=== PATIENT | female | born 1930 | race Caucasian/White ===

== ENCOUNTER 2016-11-22 12:31 | Emergency (ER) | payer MEDICARE, BC ==
[~2016-11-22] VITALS: Ht 160 cm; Wt 75.7 kg
[~2016-11-22 12:31] MED LIST: ATOR20TA15 PO; CITRTAB7 PO; LISI-515 PO; NAME10TA PO; OMEP20TA PO; PLAV75TA29 PO
[2016-11-22 12:45] VITALS: BP 195/96; PULSE 87; RESP 16; TEMP 97.9; O2SAT 99
[2016-11-22 13:04] VITALS: BP 197/89; PULSE 74; RESP 17
[2016-11-22] MEDS ORDERED: amLODIPine BESYLATE 5 MG TAB PO ONE (13:30)
--- NOTE | 2016-11-22 13:32 | PD ---
HPI Chief Complaint: Hypertension Time Seen by Provider: 13:28 Travel History International Travel<30 days: No Contact w/Intl Traveler<30days: No Traveled to known affect area: No History of Present Illness HPI 86-year-old female with history of hypertension, previous TIA, states that her primary care physician had recently changed her blood pressure medications in order to decrease the amount of pills she is taking, and she noticed that the last 2 days, her blood pressure has been up. She denies any headaches, chest pains, shortness of breath, or other issues. She reports not feeling any differently otherwise. Modifying Factors: None Associated Signs & Symptoms: Elevated blood pressures Risk Factors: Hypertension, primary care physician changed her medications PFSH Past Medical History Hx Anticoagulant Therapy: Yes Arthritis: Yes Asthma: No Autoimmune Disease: Yes Blood Disorders: No Anxiety: Yes Depression: Yes Heart Rhythm Problems: No Cancer: Yes (breast) Cardiac Catheterization: Yes Cardiovascular Problems: Yes (HTN CHOL) High Cholesterol: Yes Chemotherapy: No Chest Pain: Yes Congestive Heart Failure: No COPD: No Cerebrovascular Accident: Yes (TIA) Dementia: Yes Diabetes: No Endocrine: No GERD: Yes Genitourinary: Yes Hypertension: Yes Immune Disorder: No Kidney Stones: No Musculoskeletal: Yes Neurologic: Yes (TIA IN 2013) Psychiatric: No Reproductive: No Respiratory: No Immunizations Current: Yes Migraines: Yes Radiation Therapy: No Renal Failure: No Seizures: No Sickle Cell Disease: No Sleep Apnea: No Thyroid Disease: No Ulcer: No Tetanus Vaccination: Unknown Influenza Vaccination: Yes ?: Not : 3 Para: 2 Miscarriage: 1 Past Surgical History Abdominal Surgery: Yes AICD: No Arteriovenous Shunt: No Cardiac Surgery: No Cholecystectomy: Yes Ear Surgery: No Endocrine Surgery: Yes (PARATHYROIDECTOMY) Eye Surgery: Yes (CATARACT REMOVAL BOTH EYES. ) Genitourinary Surgery: No Gynecologic Surgery: Yes (BILATERAL MASTECTOMY) Hysterectomy: No Insulin Pump: No Joint Replacement: No Mastectomy: Yes Oral Surgery: No Pacemaker: No Thoracic Surgery: No Tonsillectomy: Yes Other Surgery: Yes (MASTECTOMY BOTH BREASTS R/T CANCER) Social History Alcohol Use: Yes (RARE) Tobacco Use: No Substance Use: No Allergies-Medications (Allergen,Severity, Reaction): Coded Allergies: Cefzil (Unverified Allergy, Severe, Hives, 11/22/16) ITCHING AND REDNESS WITH HIVES Shrimp (Verified Allergy, Unknown, Anaphylaxis, 11/22/16) Reported Meds & Prescriptions Reported Meds & Active Scripts Active Atorvastatin (Atorvastatin Calcium) 20 Mg Tab 20 Mg PO HS Lisinopril 20 Mg Tab 20 Mg PO DAILY Plavix (Clopidogrel Bisulfate) 75 Mg Tab 75 Mg PO DAILY Omeprazole 20 Mg Tab 20 Mg PO HS Reported Citracal + D3 Maximum (Calcium Citrate-Vitamin D) 315-250 Mg-Unit Tab 1 Tab PO BID Namenda (Memantine) 10 Mg Tab 10 Mg PO HS Review of Systems Except as stated in HPI: all other systems reviewed are Neg Physical Exam Narrative GENERAL: Well-nourished, well-developed pleasant elderly white female patient in no acute distress. Awake and oriented 3. SKIN: Warm and dry. HEAD: Normocephalic. EYES: No scleral icterus. No injection or drainage. NECK: Supple, trachea midline. CARDIOVASCULAR: Regular rate and rhythm without murmurs, gallops, or rubs. RESPIRATORY: Breath sounds equal bilaterally. No accessory muscle use. GASTROINTESTINAL: Abdomen soft, non-tender, nondistended. MUSCULOSKELETAL: No cyanosis, or edema. BACK: Nontender without obvious deformity. No CVA tenderness. Data Data Last Documented VS Vital Signs Date Time Temp Pulse Resp B/P Pulse Ox O2 Delivery O2 Flow Rate FiO2 11/22/16 14:23 66 17 178/61 97 Room Air 11/22/16 12:45 97.9 Orders Electrocardiogram (11/22/16 13:28) Basic Metabolic Panel (Bmp) (11/22/16 13:28) Troponin I (11/22/16 13:28) Amlodipine (Norvasc) (11/22/16 13:30) Labs Laboratory Tests Test 11/22/16 13:45 Sodium Level 143 MEQ/L Potassium Level 3.9 MEQ/L Chloride Level 111 MEQ/L Carbon Dioxide Level 23.5 MEQ/L Anion Gap 9 MEQ/L Blood Urea Nitrogen 18 MG/DL Creatinine 0.76 MG/DL Estimat Glomerular Filtration 72 ML/MIN Rate Random Glucose 82 MG/DL Calcium Level 9.2 MG/DL Troponin I LESS THAN 0.02 NG/ML MDM Medical Decision Making Medical Screen Exam Complete: Yes Emergency Medical Condition: Yes Medical Record Reviewed: Yes Interpretation(s) EKG shows NSR, no acute ST elevation or depression, and no arrhythmias. No significant T-wave inversions. Laboratory Tests Test 11/22/16 13:45 Chloride Level 111 MEQ/L (98-107) Estimat Glomerular Filtration 72 ML/MIN (>89) Rate Troponin I LESS THAN 0.02 NG/ML (0.02-0.05) Differential Diagnosis Elevated blood pressurespoorly controlled hypertension versus hypertensive urgency versus renal issues Narrative Course Patient reports no chest pains, trouble breathing, or any significant acute symptoms. EKG did not show any signs of significant dysrhythmias or acute ST changes. Her lab work was otherwise unremarkable. Her cardiac enzymes is unremarkable. She was given amlodipine which she had been on previously in the ER and on reevaluation at 12:20 PM, her blood pressure is down to 174 systolic. At this point, it seems that the patient needs better blood pressure management. My plan would be to add the amlodipine back to her regimen and have her follow-up with her primary care physician for further tailoring of blood pressure medications. She should return for any worsening in blood pressures, chest pains, trouble breathing, or new symptoms as needed. The plan has discussed with her and son and they state understanding. Diagnosis Primary Impression: Hypertension Med/Other Pt SpecificInfo: Existing Med Changed (restart your amlodipine as previously prescribed) Disposition: 01 DISCHARGE HOME Condition: Stable Blayne Liu MD Nov 22, 2016 13:32
[2016-11-22 13:58] LABS: CHLORIDE 111 MEQ/L (98-107); POTASSIUM 3.9 MEQ/L (3.5-5.1); SODIUM (NA) 143 MEQ/L (136-145)
[2016-11-22 14:01] LABS: ANION GAP 9 MEQ/L (5-15); BICARBONATE 23.5 MEQ/L (21.0-32.0); BLOOD UREA NITROGEN 18 MG/DL (7-18)
[2016-11-22 14:04] LABS: GLOMERULAR FILTRATION RATE 72 ML/MIN (>89)
[2016-11-22 14:23] VITALS: BP 178/61; PULSE 66; RESP 17; O2SAT 97
--- NOTE | 2016-11-23 15:42 | EKG ---
Date Performed: 11/22/2016 Time Performed: 13:55:56 PTAGE: 86 years EKG: Sinus rhythm Anterior T wave changes are nonspecific Low QRS voltages in precordial leads Loss of anterior R wave Cannot rule out anterior injury, age undetermined Borderline ECG PREVIOUS TRACING : 09/23/2016 16.26 DOCTOR: Kunal Singh Interpretating Date/Time 11/23/2016 15:41:46
[2016-12-11] MEDS ORDERED: PAXI10TA2 PO (13:21)
[2017-01-22] MEDS ORDERED: AMLO5TAB2 PO ×2 (09:37→10:01)
[2017-01-22] MEDS ORDERED: RANI150T PO (10:01)
[2017-02-11] MEDS ORDERED: AMLO5TAB2 PO (14:32)
[2017-02-11] MEDS ORDERED: PAXI10TA2 PO (14:32)
[2017-04-08] MEDS ORDERED: PLAV75TA29 PO (12:42)
[2017-04-08] MEDS ORDERED: NAME10TA PO (12:42)
[2017-04-09] MEDS ORDERED: ATOR20TA15 PO (13:21)
[2017-04-09] MEDS ORDERED: AMLO5TAB2 PO (13:21)
[2017-04-24] MEDS ORDERED: ATOR20TA15 PO (14:40)
[2017-04-24] MEDS ORDERED: AMLO5TAB2 PO (14:41)
[2017-04-24] MEDS ORDERED: PAXI10TA2 PO (14:51)
[2017-04-24] MEDS ORDERED: PROP20TA3 PO (14:52)
[2017-05-02] MEDS ORDERED: ATOR20TA15 PO (12:03)
== END 2016-11-22 14:48 | disposition home or self-care (01) ==
LOC: PHED 12:31
DX: I10 Essential (primary) hypertension (principal); R94.31 Abnormal electrocardiogram [ECG] [EKG]; Z86.73 Personal history of transient ischemic attack (TIA), and cerebral infarction without residual deficits; E78.00 Pure hypercholesterolemia, unspecified; K21.9 Gastro-esophageal reflux disease without esophagitis; Z79.01 Long term (current) use of anticoagulants
CPT/HCPCS: 80048; 84484; 93005

== ENCOUNTER 2017-06-22 13:48 | Emergency (ER) | payer MEDICARE, BC ==
[~2017-06-22] VITALS: Ht 162.6 cm; Wt 75.0 kg
[~2017-06-22 13:48] MED LIST changes: +AMLO5TAB2 PO; -OMEP20TA PO; +PAXI10TA2 PO
[2017-06-22 13:54] VITALS: BP 237/100; PULSE 75; RESP 16; TEMP 97.3; O2SAT 100
[2017-06-22] MEDS ORDERED: LOSA50TA PO (14:07)
[2017-06-22] MEDS ORDERED: ALPR0.25 PO (14:07)
[2017-06-22] MEDS ORDERED: POTA-163 PO (14:07)
[2017-06-22] MEDS ORDERED: MEMA1TAB PO (14:07)
--- NOTE | 2017-06-22 14:08 | PD ---
HPI Chief Complaint: Headache Time Seen by Provider: 14:05 Travel History International Travel<30 days: No Contact w/Intl Traveler<30days: No Traveled to known affect area: No History of Present Illness HPI Patient presents with concerns of elevated blood pressure. Reports evaluation by her primary care provider on Friday with adjustments of her medications. Compliant with losartan 50 mg by mouth twice a day. Reports a headache that started later in the morning. Otherwise asymptomatic. Denies any chest pain shortness of breath urinary or bowel symptoms. Denies any extremity weakness. Denies any nausea vomiting diarrhea or fever. PFSH Past Medical History Hx Anticoagulant Therapy: Yes Arthritis: Yes Asthma: No Autoimmune Disease: Yes Blood Disorders: No Anxiety: Yes Depression: Yes Heart Rhythm Problems: No Cancer: Yes (breast) Cardiac Catheterization: Yes Cardiovascular Problems: Yes (HTN CHOL) High Cholesterol: Yes Chemotherapy: No Chest Pain: Yes Congestive Heart Failure: No COPD: No Cerebrovascular Accident: Yes (TIA) Dementia: Yes Diabetes: No Endocrine: No GERD: Yes Genitourinary: Yes Hypertension: Yes Immune Disorder: No Kidney Stones: No Musculoskeletal: Yes Neurologic: Yes (TIA IN 2013) Psychiatric: No Reproductive: No Respiratory: No Immunizations Current: Yes Migraines: Yes Radiation Therapy: No Renal Failure: No Seizures: No Sickle Cell Disease: No Sleep Apnea: No Thyroid Disease: No Ulcer: No : 3 Para: 2 Miscarriage: 1 Past Surgical History Abdominal Surgery: Yes AICD: No Arteriovenous Shunt: No Cardiac Surgery: No Cholecystectomy: Yes Ear Surgery: No Endocrine Surgery: Yes (PARATHYROIDECTOMY) Eye Surgery: Yes (CATARACT REMOVAL BOTH EYES. ) Genitourinary Surgery: No Gynecologic Surgery: Yes (BILATERAL MASTECTOMY) Hysterectomy: No Insulin Pump: No Joint Replacement: No Mastectomy: Yes Oral Surgery: No Pacemaker: No Thoracic Surgery: No Tonsillectomy: Yes Other Surgery: Yes (MASTECTOMY BOTH BREASTS R/T CANCER) Social History Alcohol Use: Yes (RARE) Tobacco Use: No Substance Use: No Allergies-Medications (Allergen,Severity, Reaction): Coded Allergies: Cefzil (Unverified Allergy, Severe, Hives, 06/22/17) ITCHING AND REDNESS WITH HIVES Shrimp (Verified Allergy, Unknown, Anaphylaxis, 06/22/17) Reported Meds & Prescriptions Reported Meds & Active Scripts Active Atorvastatin (Atorvastatin Calcium) 20 Mg Tab 20 Mg PO HS Paxil (Paroxetine HCl) 10 Mg Tab 10 Mg PO BID Plavix (Clopidogrel Bisulfate) 75 Mg Tab 75 Mg PO DAILY Namenda (Memantine) 10 Mg Tab 10 Mg PO HS Reported Alprazolam 0.25 Mg Tab 0.25 Mg PO DAILY Losartan (Losartan Potassium) 50 Mg Tab 50 Mg PO BID Citracal + D3 Maximum (Calcium Citrate-Vitamin D) 315-250 Mg-Unit Tab 1 Tab PO BID Review of Systems General / Constitutional: No: Fever Eyes: No: Visual changes HENT: Positive: Headaches Cardiovascular: No: Chest Pain or Discomfort Respiratory: No: Shortness of Breath Gastrointestinal: No: Abdominal Pain Genitourinary: No: Dysuria Musculoskeletal: No: Pain Skin: No Rash Neurologic: No: Weakness Psychiatric: No: Depression Endocrine: No: Polydipsia Hematologic/Lymphatic: No: Easy Bruising Physical Exam Narrative GENERAL: Well-nourished, well-developed patient. SKIN: Focused skin assessment warm/dry. HEAD: Normocephalic. EYES: No scleral icterus. No injection or drainage. NECK: Supple, trachea midline. No JVD or lymphadenopathy. CARDIOVASCULAR: Regular rate and rhythm without murmurs, gallops, or rubs. RESPIRATORY: Breath sounds equal bilaterally. No accessory muscle use. GASTROINTESTINAL: Abdomen soft, non-tender, nondistended. MUSCULOSKELETAL: No cyanosis, or edema. BACK: Nontender without obvious deformity. No CVA tenderness. Data Data Last Documented VS Vital Signs Date Time Temp Pulse Resp B/P Pulse Ox O2 Delivery O2 Flow Rate FiO2 06/22/17 14:59 68 18 149/70 98 Room Air 06/22/17 13:54 97.3 Orders Clonidine (Catapres) (06/22/17 14:15) [facility] Medical Decision Making Medical Screen Exam Complete: Yes Emergency Medical Condition: Yes Differential Diagnosis Urgent hypertension, medication noncompliance, cephalgia, renal artery stenosis Narrative Course Assessment and plan discussed with patient and son at bedside. Patient received clonidine. With improvement of her blood pressure and resolution of her headache. Diagnosis Primary Impression: Hypertensive urgency Additional Instructions: Continue current medications. Encouraged a blood pressure log for evaluation with her PCP. Encouraged to observe salt in diet. Norvasc added twice a day. Med/Other Pt SpecificInfo: Prescription(s) given Scripts Amlodipine (Norvasc)5 Mg Tab5 Mg PO BID #60 TAB Ref 0 Prov:Darrell Avalos MD 06/22/17 Darrell Avalos MD Jun 22, 2017 14:08
[2017-06-22] MEDS ORDERED: cloNIDine HCL 0.2 MG TAB PO ONE (14:15)
[2017-06-22 14:46] VITALS: BP 194/75; PULSE 67; RESP 18; O2SAT 97
[2017-06-22 14:59] VITALS: BP 149/70; PULSE 68; RESP 18; O2SAT 98
[2017-06-22] MEDS ORDERED: AMLO5 PO (15:04)
== END 2017-06-22 15:41 | disposition home or self-care (01) ==
LOC: PHED 13:48
DX: I16.0 Hypertensive urgency (principal); I10 Essential (primary) hypertension; R51 Headache; F03.90 Unspecified dementia, unspecified severity, without behavioral disturbance, psychotic disturbance, mood disturbance, and anxiety; E78.00 Pure hypercholesterolemia, unspecified; Z79.01 Long term (current) use of anticoagulants; Z87.39 Personal history of other diseases of the musculoskeletal system and connective tissue; Z86.2 Personal history of diseases of the blood and blood-forming organs and certain disorders involving the immune mechanism; Z86.59 Personal history of other mental and behavioral disorders; Z85.3 Personal history of malignant neoplasm of breast; Z86.79 Personal history of other diseases of the circulatory system; Z87.19 Personal history of other diseases of the digestive system; Z87.448 Personal history of other diseases of urinary system; Z86.69 Personal history of other diseases of the nervous system and sense organs
CPT/HCPCS: 99283

== ENCOUNTER 2018-01-04 10:21 | Emergency (ER) | payer MEDICARE, BC ==
[~2018-01-04] VITALS: Ht 160 cm; Wt 74.8 kg
[~2018-01-04 10:21] MED LIST changes: +ALPR0.25 PO; +AMLO5 PO; -AMLO5TAB2 PO; -LISI-515 PO; +LOSA50TA PO; -PAXI10TA2 PO; +PAXI10TA8 PO
[2018-01-04 10:29] VITALS: BP 125/79; PULSE 81; RESP 16; TEMP 98; O2SAT 97
--- NOTE | 2018-01-04 10:58 | PD ---
HPI Chief Complaint: Fall Time Seen by Provider: 10:47 Travel History International Travel<30 days: No Contact w/Intl Traveler<30days: No Traveled to known affect area: No History of Present Illness HPI Patient presents with complaints of anterior chest pain and left neck pain for 8 days. Aggravated with motion. Constant in nature. Reports a fall 9 days ago onto a dresser with her chest and left neck taking the brunt of it. Denies any head trauma. Denies any loss of consciousness. Denies any shortness of breath. Denies any nausea vomiting diarrhea or fever. Denies any urinary or bowel symptoms. PFSH Past Medical History Hx Anticoagulant Therapy: Yes (coumadin) Arthritis: Yes Asthma: No Autoimmune Disease: Yes Blood Disorders: No Anxiety: Yes Depression: Yes Heart Rhythm Problems: No Cancer: Yes (breast) Cardiac Catheterization: Yes Cardiovascular Problems: Yes (HTN CHOL) High Cholesterol: Yes Chemotherapy: No Chest Pain: Yes Congestive Heart Failure: No COPD: No Cerebrovascular Accident: Yes (TIA) Dementia: Yes Diabetes: No Diminished Hearing: No Endocrine: No GERD: Yes Genitourinary: Yes Hypertension: Yes Immune Disorder: No Kidney Stones: No Musculoskeletal: Yes Neurologic: Yes (TIA IN 2013) Psychiatric: No Reproductive: No Respiratory: No Immunizations Current: Yes Migraines: Yes Radiation Therapy: No Renal Failure: No Seizures: No Sickle Cell Disease: No Sleep Apnea: No Thyroid Disease: No Ulcer: No Influenza Vaccination: Yes ?: Not : 3 Para: 2 Miscarriage: 1 Past Surgical History Abdominal Surgery: Yes AICD: No Arteriovenous Shunt: No Cardiac Surgery: No Cholecystectomy: Yes Ear Surgery: No Endocrine Surgery: Yes (PARATHYROIDECTOMY) Eye Surgery: Yes (CATARACT REMOVAL BOTH EYES. ) Genitourinary Surgery: No Gynecologic Surgery: Yes (BILATERAL MASTECTOMY) Hysterectomy: No Insulin Pump: No Joint Replacement: No Mastectomy: Yes Oral Surgery: No Pacemaker: No Thoracic Surgery: No Tonsillectomy: Yes Other Surgery: Yes (MASTECTOMY BOTH BREASTS R/T CANCER) Social History Alcohol Use: No Tobacco Use: No Substance Use: No Allergies-Medications (Allergen,Severity, Reaction): Coded Allergies: cefprozil (Unverified Allergy, Severe, Hives, 01/04/18) ITCHING AND REDNESS WITH HIVES shrimp (Unverified Allergy, Unknown, Anaphylaxis, 01/04/18) Reported Meds & Prescriptions Reported Meds & Active Scripts Active Norvasc (Amlodipine Besylate) 5 Mg Tab 5 Mg PO BID Atorvastatin (Atorvastatin Calcium) 20 Mg Tab 20 Mg PO HS Paxil (Paroxetine HCl) 10 Mg Tab 10 Mg PO BID Plavix (Clopidogrel Bisulfate) 75 Mg Tab 75 Mg PO DAILY Namenda (Memantine) 10 Mg Tab 10 Mg PO HS Reported Alprazolam 0.25 Mg Tab 0.25 Mg PO DAILY Losartan (Losartan Potassium) 50 Mg Tab 50 Mg PO BID Citracal + D3 Maximum (Calcium Citrate-Vitamin D) 315-250 Mg-Unit Tab 1 Tab PO BID Review of Systems General / Constitutional: No: Fever Eyes: No: Visual changes HENT: No: Headaches Cardiovascular: No: Chest Pain or Discomfort Respiratory: No: Shortness of Breath Gastrointestinal: No: Abdominal Pain Genitourinary: No: Dysuria Musculoskeletal: Positive: Pain Skin: No Rash Neurologic: No: Weakness Psychiatric: No: Depression Endocrine: No: Polydipsia Hematologic/Lymphatic: No: Easy Bruising Physical Exam Narrative GENERAL: Well-nourished, well-developed patient. SKIN: Focused skin assessment warm/dry. HEAD: Normocephalic. EYES: No scleral icterus. No injection or drainage. NECK: Supple, trachea midline. No JVD or lymphadenopathy. Tenderness to palpation over the left sternocleidomastoid muscle, no ecchymosis noted Tenderness to palpation over the sternum and to the left of midline, no ecchymosis or bony deformity noted CARDIOVASCULAR: Regular rate and rhythm without murmurs, gallops, or rubs. RESPIRATORY: Breath sounds equal bilaterally. No accessory muscle use. GASTROINTESTINAL: Abdomen soft, non-tender, nondistended. MUSCULOSKELETAL: No cyanosis, or edema. BACK: Nontender without obvious deformity. No CVA tenderness. Data Data Last Documented VS Vital Signs Date Time Temp Pulse Resp B/P (MAP) Pulse Ox O2 Delivery O2 Flow Rate FiO2 01/04/18 13:03 79 18 167/61 (96) 98 Room Air 01/04/18 10:29 98.0 Orders Orders Chest, Pa & Lat (01/04/18 ) Spine, Cervical - Ltd (Ap&Lat) (01/04/18 ) Al-Mag Hy-Si 40-40-4 Mg/Ml Liq (Mag-Al P (01/04/18 12:30) Lidocaine 2% Viscous (Xylocaine 2% Visco (01/04/18 12:30) MDM Medical Decision Making Medical Screen Exam Complete: Yes Emergency Medical Condition: Yes Differential Diagnosis Left rib fracture, sternal contusion, musculoskeletal pain Narrative Course Assessment and plan discussed with patient and son and [id number] at bedside. Towards the end of her visit patient reported some epigastric discomfort which did improve with GI cocktail. Diagnosis Primary Impression: Musculoskeletal pain Additional Impression: Epigastric discomfort Additional Instructions: Tylenol warm heat gentle stretching and strengthening massage. Zantac as prescribed. Encouraged to avoid aggravate factors of reflux including but not limited to alcohol tobacco late large meals spicy meals and weight Discussed [id number] remedies for constipation. Follow-up with PCP. Return emergently onset of new symptoms. Med/Other Pt SpecificInfo: Prescription(s) given Scripts Ranitidine (Zantac) 150 Mg Tab 150 MG PO DAILY for Reduce Stomach Acid, #30 TAB 0 Refills Prov: Darrell Avalos MD 01/04/18 Disposition: 01 DISCHARGE HOME Condition: Good Darrell Avalos MD Jan 04, 2018 10:58
--- NOTE | 2018-01-04 12:09 | RADRPT ---
EXAM DATE/TIME: 01/04/2018 11:27 [facility] COMPARISON: CHEST SINGLE AP, January 12, 2015, 23:00. INDICATIONS : Tripped and fell. Mid-sternal pain. MEDICAL HISTORY : None. SURGICAL HISTORY : None. ENCOUNTER: Initial ACUITY: 3 days PAIN SCORE: 8/10 LOCATION: Bilateral chest FINDINGS: PA and lateral views of the chest demonstrate the lungs to be symmetrically aerated without evidence of mass, infiltrate or effusion. Mild chronic interstitial changes are noted bilaterally. There is st able chronic scarring in both apices. The cardiomediastinal contours are unremarkable. Osseous stru ctures are intact. No significant changes compared to the prior study. CONCLUSION: No acute disease. No significant change has occurred. Isaiah Ibarra MD on January 04, 2018 at 12:07 Board Certified Radiologist. This report was verified electronically.
--- NOTE | 2018-01-04 12:11 | RADRPT ---
EXAM DATE/TIME: 01/04/2018 11:27 [facility] COMPARISON: No previous studies available for comparison. INDICATIONS : Tripped and fell. MEDICAL HISTORY : None. SURGICAL HISTORY : None. ENCOUNTER: Initial ACUITY: 3 days PAIN SCORE: 8/10 LOCATION: Bilateral neck mid neck FINDINGS: Two projection examination was performed. There is normal alignment and curvature of the vertebral b odies down to the level of C7. No evidence of fracture or subluxation. Vertebral body height is wes ntained. There is some focal primary degenerative changes with disc space narrowing at C5-6.. The pr evertebral soft tissues are of normal thickness. The odontoid process is intact. The atlanto-axial a rticulation is intact. There are surgical clips along the base of the neck on the right side. CONCLUSION: 1. Focal primary degenerative changes with disc space narrowing at C5-6 2. Otherwise, unremarkable examination for patient's age. Isaiah Ibarra MD on January 04, 2018 at 12:08 Board Certified Radiologist. This report was verified electronically.
[2018-01-04] MEDS ORDERED: LIDOCAINE VISCOUS 2% SOLN 15 ML UDC PO ONE (12:30)
[2018-01-04] MEDS ORDERED: ALUMINUM/MAGNESIUM/SIMETH 30 ML CUP PO ONE (12:30)
[2018-01-04 13:03] VITALS: BP 167/61; PULSE 79; RESP 18; O2SAT 98
[2018-01-04] MEDS ORDERED: ZANT150T2 PO (13:36)
== END 2018-01-04 13:49 | disposition home or self-care (01) ==
LOC: PHED 10:21
DX: R07.9 Chest pain, unspecified (principal); M54.2 Cervicalgia; M19.90 Unspecified osteoarthritis, unspecified site; F41.9 Anxiety disorder, unspecified; F32.9 Major depressive disorder, single episode, unspecified; I10 Essential (primary) hypertension; K21.9 Gastro-esophageal reflux disease without esophagitis; F03.90 Unspecified dementia, unspecified severity, without behavioral disturbance, psychotic disturbance, mood disturbance, and anxiety; Z86.73 Personal history of transient ischemic attack (TIA), and cerebral infarction without residual deficits
CPT/HCPCS: 71046; 72040; 99284

== ENCOUNTER 2018-02-17 10:08 | Emergency (ER) | payer MEDICARE, BC ==
[~2018-02-17] VITALS: Ht 162.6 cm; Wt 76.0 kg
[~2018-02-17 10:08] MED LIST changes: +ZANT150T2 PO
[2018-02-17 10:16] VITALS: BP 223/93; PULSE 82; RESP 16; TEMP 97.5; O2SAT 99
[2018-02-17 11:02] VITALS: BP_SYST 211; BP_SYST 214; BP_DIAS 100; BP_DIAS 92; PULSE 80; RESP 16; O2SAT 98
[2018-02-17] MEDS ORDERED: VESI5TAB2 PO (11:08)
[2018-02-17] MEDS ORDERED: SODIUM CHLORIDE 0.9% FLUSH 10 ML FLUSH IVF PRN (11:15)
[2018-02-17] MEDS ORDERED: LOSARTAN 50 MG TAB PO ONE (11:15)
[2018-02-17] MEDS ORDERED: amLODIPine BESYLATE 5 MG TAB PO ONE (11:15)
[2018-02-17 11:19] VITALS: O2SAT 97
[2018-02-17 11:41] LABS: CHLORIDE 108 MEQ/L (98-107); SODIUM (NA) 140 MEQ/L (136-145)
[2018-02-17 11:42] LABS: AUTOMATED NEUTROPHIL # 4.2 TH/MM3 (1.8-7.7); BASOPHIL % 0.6 % (0.0-2.0); EOSINOPHIL # 0.2 TH/MM3 (0-0.4); EOSINOPHIL % 2.8 % (0.0-4.0); HEMATOCRIT 41.5 % (35.0-46.0); LYMPH % 24.3 % (9.0-44.0); LYMPHOCYTE # 1.5 TH/MM3 (1.0-4.8); MEAN CELL VOLUME 91.1 FL (80.0-100.0); MEAN CORPUSCULAR HEMOGLOBIN 30.7 PG (27.0-34.0); MEAN CORPUSCULAR HGB CONC 33.7 % (32.0-36.0); MEAN PLATELET VOLUME 7.8 FL (7.0-11.0); MONO % 4.7 % (0.0-8.0); MONOCYTE # 0.3 TH/MM3 (0-0.9); NEUT % 67.6 % (16.0-70.0); PLATELET COUNT 184 TH/MM3 (150-450); RED BLOOD COUNT 4.56 MIL/MM3 (4.00-5.30); RED CELL DISTRIBUTION WIDTH 13.4 % (11.6-17.2); WHITE BLOOD COUNT 6.3 TH/MM3 (4.0-11.0)
[2018-02-17 11:44] LABS: BICARBONATE 24.2 MEQ/L (21.0-32.0); BLOOD UREA NITROGEN 16 MG/DL (7-18); CALCIUM 8.8 MG/DL (8.5-10.1); GLUCOSE,RANDOM 97 MG/DL (74-106); MAGNESIUM 2.6 MG/DL (1.5-2.5)
[2018-02-17 11:48] LABS: CREATININE 0.82 MG/DL (0.50-1.00); GLOMERULAR FILTRATION RATE 66 ML/MIN (>89)
[2018-02-17 11:53] LABS: TROPONIN I LESS THAN 0.02 NG/ML (0.02-0.05)
--- NOTE | 2018-02-17 12:01 | RADRPT ---
EXAM DATE/TIME: 02/17/2018 11:16 [facility] COMPARISON: CHEST PA & LAT, January 04, 2018, 11:27. INDICATIONS : Hypertension. MEDICAL HISTORY : Hypercholesterolemia. Hypertension Carcinoma, breast. SURGICAL HISTORY : Mastectomy, bilateral. ENCOUNTER: Initial ACUITY: 1 day PAIN SCORE: 0/10 LOCATION: chest FINDINGS: The cardiac silhouette is normal in transverse diameter. The lungs are free of acute parenchymal opac ity. No effusions are identified. Emphysematous changes are present in the upper lobes. There is prom inence of the aortic knob is with calcification characteristic of atherosclerotic vascular disease. CONCLUSION: 1. No acute cardiopulmonary disease. Richard George MD on February 17, 2018 at 11:58 Board Certified Radiologist. This report was verified electronically.
[2018-02-17 12:35] VITALS: BP 200/77; PULSE 72; RESP 16; O2SAT 98
[2018-02-17 12:37] LABS: BILIRUBIN, URINE NEG (NEG); BLOOD, URINE NEG (NEG); GLUCOSE,URINE NEG (NEG); KETONE, URINE NEG (NEG); NITRITE,URINE NEG (NEG); URINE COLOR YELLOW (YELLW/STRAW); URINE LEUKOCYTE ESTERASE TRACE (NEG)
--- NOTE | 2018-02-17 12:45 | EKG ---
Date Performed: 02/17/2018 Time Performed: 11:38:22 PTAGE: 87 years EKG: Sinus rhythm NONSPECIFIC T-WAVE ABNORMALITY BORDERLINE ECG Compared to prior electrocardiogram, The axis has rota mary ann rightward. PREVIOUS TRACING : 11/22/2016 13.55 DOCTOR: Dony Barrera Interpretating Date/Time 02/17/2018 12:44:08
[2018-02-17 12:47] LABS: SQUAMOUS EPITHELIAL CELL URINE 0-2 /hpf (0-5); WBC, URINE 0-2 /hpf (0-5)
--- NOTE | 2018-02-17 12:50 | PD ---
HPI Chief Complaint: Hypertension Time Seen by Provider: 11:09 Travel History International Travel<30 days: No Contact w/Intl Traveler<30days: No Traveled to known affect area: No History of Present Illness HPI The patient's 87 years old and arrives to the ER with a complaint of hypertension. She, this morning, experienced some chest pounding which led to her checking the blood pressure which at home was 210/110. That was about an hour and half prior to ER arrival. Associated symptoms include generalized tremor. The son provides much of the history is well and notes that she is weak. She takes Xanax every other day. She missed about 3 days. Patient skipped antihypertensives this morning, Norvasc and losartan. In the ER she denies chest pain and shortness of breath. No nausea or vomiting. Patient reports chronic paresthesias involving the fingertips and toes. PFSH Past Medical History Hx Anticoagulant Therapy: Yes (coumadin) Arthritis: Yes Asthma: No Autoimmune Disease: Yes Blood Disorders: No Anxiety: Yes Depression: Yes Heart Rhythm Problems: No Cancer: Yes (breast) Cardiac Catheterization: Yes Cardiovascular Problems: Yes (HTN CHOL) High Cholesterol: Yes Chemotherapy: No Chest Pain: Yes Congestive Heart Failure: No COPD: No Cerebrovascular Accident: Yes (TIA) Dementia: Yes Diabetes: No Diminished Hearing: No Endocrine: No GERD: Yes Genitourinary: Yes Hypertension: Yes Immune Disorder: No Kidney Stones: No Musculoskeletal: Yes Neurologic: Yes (TIA IN 2013) Psychiatric: No Reproductive: No Respiratory: No Immunizations Current: Yes Migraines: Yes Radiation Therapy: No Renal Failure: No Seizures: No Sickle Cell Disease: No Sleep Apnea: No Thyroid Disease: No Ulcer: No Tetanus Vaccination: > 5 Years Influenza Vaccination: Yes ?: Not : 3 Para: 2 Miscarriage: 1 Past Surgical History Abdominal Surgery: Yes AICD: No Arteriovenous Shunt: No Cardiac Surgery: No Cholecystectomy: Yes Ear Surgery: No Endocrine Surgery: Yes (PARATHYROIDECTOMY) Eye Surgery: Yes (CATARACT REMOVAL BOTH EYES. ) Genitourinary Surgery: No Gynecologic Surgery: Yes (BILATERAL MASTECTOMY) Hysterectomy: No Insulin Pump: No Joint Replacement: No Mastectomy: Yes Oral Surgery: No Pacemaker: No Thoracic Surgery: No Tonsillectomy: Yes Other Surgery: Yes (MASTECTOMY BOTH BREASTS R/T CANCER) Social History Alcohol Use: No Tobacco Use: No Substance Use: No Allergies-Medications (Allergen,Severity, Reaction): Coded Allergies: cefprozil (Unverified Allergy, Severe, Hives, 02/17/18) ITCHING AND REDNESS WITH HIVES shrimp (Unverified Allergy, Unknown, Anaphylaxis, 02/17/18) Reported Meds & Prescriptions Reported Meds & Active Scripts Active Norvasc (Amlodipine Besylate) 5 Mg Tab 5 Mg PO BID Atorvastatin (Atorvastatin Calcium) 20 Mg Tab 20 Mg PO HS Paxil (Paroxetine HCl) 10 Mg Tab 10 Mg PO BID Plavix (Clopidogrel Bisulfate) 75 Mg Tab 75 Mg PO DAILY Namenda (Memantine) 10 Mg Tab 10 Mg PO HS Reported Vesicare (Solifenacin) 5 Mg Tab 5 Mg PO DAILY Alprazolam 0.25 Mg Tab 0.25 Mg PO DAILY Losartan (Losartan Potassium) 50 Mg Tab 50 Mg PO BID Citracal + D3 Maximum (Calcium Citrate-Vitamin D) 315-250 Mg-Unit Tab 1 Tab PO BID Review of Systems Except as stated in HPI: all other systems reviewed are Neg General / Constitutional: No: Fever Cardiovascular: Positive: Palpitations, No: Chest Pain or Discomfort Respiratory: No: Shortness of Breath Physical Exam Narrative GENERAL: Female pleasant well-nourished well-developed no acute distress 87 yo Vital Signs Date Time Temp Pulse Resp B/P (MAP) Pulse Ox O2 Delivery O2 Flow Rate FiO2 02/17/18 12:35 72 16 200/77 (118) 98 Room Air 02/17/18 11:19 97 Room Air 02/17/18 11:02 Room Air 02/17/18 11:02 80 16 211/92 (131) 98 Room Air 214/100 (138) 02/17/18 10:16 97.5 82 16 223/93 (136) 99 SKIN: Warm and dry. HEAD: Atraumatic. Normocephalic. EYES: Pupils equal and round. No scleral icterus. No injection or drainage. ENT: No nasal bleeding or discharge. Mucous membranes pink and moist. NECK: Trachea midline. No JVD. CARDIOVASCULAR: Regular rate and rhythm. RESPIRATORY: No accessory muscle use. Clear to auscultation. Breath sounds equal bilaterally. GASTROINTESTINAL: Abdomen soft, non-tender, nondistended. Hepatic and splenic margins not palpable. MUSCULOSKELETAL: Extremities without clubbing, cyanosis, or edema. No obvious deformities. NEUROLOGICAL: Cranial nerves are symmetric. Upper and lower extremity strength normal 5 over 5. Speech and mentation normal. PSYCHIATRIC: Reasonably cooperative. Very sleepy. Data Data Last Documented VS Vital Signs Date Time Temp Pulse Resp B/P (MAP) Pulse Ox O2 Delivery O2 Flow Rate FiO2 02/17/18 13:16 68 16 174/82 (112) 96 Room Air 02/17/18 10:16 97.5 VS reviewed Orders Orders Electrocardiogram (02/17/18 11:09) Basic Metabolic Panel (Bmp) (02/17/18 11:09) Ckmb (Isoenzyme) Profile (02/17/18 11:09) Complete Blood Count With Diff (02/17/18 11:09) Magnesium (Mg) (02/17/18 11:09) Troponin I (02/17/18 11:09) Chest, Single Ap (02/17/18 11:09) Ecg Monitoring (02/17/18 11:09) Bilateral Bp Monitoring (02/17/18 11:09) Iv Access Insert/Monitor (02/17/18 11:09) Oximetry (02/17/18 11:09) Sodium Chloride 0.9% Flush (Ns Flush) (02/17/18 11:15) Amlodipine (Norvasc) (02/17/18 11:15) Losartan (Cozaar) (02/17/18 11:15) Urinalysis - C+S If Indicated (02/17/18 11:09) Ed Discharge Order (02/17/18 13:18) Labs Laboratory Tests Test 02/17/18 11:30 02/17/18 12:30 White Blood Count 6.3 TH/MM3 Red Blood Count 4.56 MIL/MM3 Hemoglobin 14.0 GM/DL Hematocrit 41.5 % Mean Corpuscular Volume 91.1 FL Mean Corpuscular Hemoglobin 30.7 PG Mean Corpuscular Hemoglobin Concent 33.7 % Red Cell Distribution Width 13.4 % Platelet Count 184 TH/MM3 Mean Platelet Volume 7.8 FL Neutrophils (%) (Auto) 67.6 % Lymphocytes (%) (Auto) 24.3 % Monocytes (%) (Auto) 4.7 % Eosinophils (%) (Auto) 2.8 % Basophils (%) (Auto) 0.6 % Neutrophils # (Auto) 4.2 TH/MM3 Lymphocytes # (Auto) 1.5 TH/MM3 Monocytes # (Auto) 0.3 TH/MM3 Eosinophils # (Auto) 0.2 TH/MM3 Basophils # (Auto) 0.0 TH/MM3 CBC Comment AUTO DIFF Differential Comment AUTO DIFF CONFIRMED Platelet Estimate NORMAL Platelet Morphology Comment NORMAL Blood Urea Nitrogen 16 MG/DL Creatinine 0.82 MG/DL Random Glucose 97 MG/DL Calcium Level 8.8 MG/DL Magnesium Level 2.6 MG/DL Sodium Level 140 MEQ/L Potassium Level 3.9 MEQ/L Chloride Level 108 MEQ/L Carbon Dioxide Level 24.2 MEQ/L Anion Gap 8 MEQ/L Estimat Glomerular Filtration Rate 66 ML/MIN Total Creatine Kinase 59 U/L Troponin I LESS THAN 0.02 NG/ML Urine Collection Type CLEAN CATCH Urine Color YELLOW Urine Turbidity CLEAR Urine pH 7.0 Urine Specific [place] 1.010 Urine Protein NEG mg/dL Urine Glucose (UA) NEG mg/dL Urine Ketones NEG mg/dL Urine Occult Blood NEG Urine Nitrite NEG Urine Bilirubin NEG Urine Urobilinogen 0.2 MG/DL Urine Leukocyte Esterase TRACE Urine WBC 0-2 /hpf Urine Squamous Epithelial Cells 0-2 /hpf Microscopic Urinalysis Comment CULT NOT INDICATED MDM Medical Decision Making Medical Screen Exam Complete: Yes Emergency Medical Condition: Yes Medical Record Reviewed: Yes Differential Diagnosis polypharmacy, benzodiazepine side effect, UTI, anemia, metabolic disarray Narrative Course CBC & BMP Diagram 02/17/18 11:30 Calcium Level 8.8, Magnesium Level 2.6 H EKG: Shows sinus rhythm, rate 69, normal axis/intervals Last Impressions Chest X-Ray 02/17/18 1109 Signed Impressions: Service Date/Time: Saturday, February 17, 2018 11:16 - CONCLUSION: 1. No acute cardiopulmonary disease. Richard George MD Blood pressure improved significantly. There is concern for polypharmacy. Workup and results discussed with patient and her sons. Follow-up with primary care for medication management as well as neurologist for medication management. Diagnosis Primary Impression: Palpitation Additional Impressions: Anxiousness Hypertension Qualified Codes: I10 - Essential (primary) hypertension Referrals: Tk More MD call for appointment Primary Care Physician call for appointment Med/Other Pt SpecificInfo: No Change to Meds Disposition: DISCHARGE HOME Condition: Stable Rob Daniels MD Feb 17, 2018 12:49
[2018-02-17 13:16] VITALS: BP 174/82; PULSE 68; RESP 16; O2SAT 96
== END 2018-02-17 13:54 | disposition home or self-care (01) ==
LOC: PHED 10:08
DX: R00.2 Palpitations (principal); R94.31 Abnormal electrocardiogram [ECG] [EKG]; F41.8 Other specified anxiety disorders; E78.00 Pure hypercholesterolemia, unspecified; F03.90 Unspecified dementia, unspecified severity, without behavioral disturbance, psychotic disturbance, mood disturbance, and anxiety; K21.9 Gastro-esophageal reflux disease without esophagitis; Z79.01 Long term (current) use of anticoagulants
CPT/HCPCS: 71045; 80048; 81001; 82550; 83735; 84484; 85025; 93005